=== PATIENT | female | born 1985 | race Caucasian/White ===

== ENCOUNTER 2016-10-28 13:58 | Emergency (ER) | payer OTHER ==
[2016-10-28 13:58] VITALS: BMI 21.0
[2016-10-28 14:06] VITALS: TEMP 98.1
[2016-10-28] MEDS ORDERED: Sodium Chloride 0.9% 1,000 ML ONE (14:15)
[2016-10-28] MEDS: Sodium Chloride 0.9% 1,000 ML IV ONE (14:25)
[2016-10-28 14:36] LABS: BASO # 0.1 K/uL (0.0-0.2); BASO % 0.6 % (0.0-2.0); EOS # 0.1 K/uL (0.0-0.7); EOS % 1.6 % (0.0-4.0); HEMATOCRIT 41.9 % (34.0-47.0); LYMPH # 2.1 K/uL (1.0-4.3); LYMPH % 22.9 % (20.0-40.0); MEAN CELL VOLUME 93.3 fL (81.0-99.0); MEAN CORPUSCULAR HEMOGLOBIN 31.6 pg (27.0-31.0); MEAN CORPUSCULAR HGB CONC 33.8 g/dL (33.0-37.0); MEAN PLATELET VOLUME 7.8 fL (7.2-11.7); MONO # 0.5 K/uL (0.0-0.8); MONO % 5.9 % (0.0-10.0); NRBC % 0.1 % (0.0-2.0); RED CELL DISTRIBUTION WIDTH 13.5 % (11.5-14.5)
[2016-10-28 14:53] LABS: CHLORIDE 100 mmol/L (98-107); POTASSIUM 3.8 mmol/L (3.6-5.2); SODIUM 139 mmol/L (132-148)
[2016-10-28 14:55] LABS: BILIRUBIN,TOTAL 0.9 mg/dL (0.2-1.3); GFR AFRICAN-AMERICAN > 60
[2016-10-28 14:56] LABS: ALB/GLOB RATIO 2.2 (1.0-2.1); ALKALINE PHOSPHATASE 61 U/L (38-126); ALT/SGPT 21 U/L (9-52); AST/SGOT 33 U/L (14-36); BLOOD UREA NITROGEN 12 mg/dL (7-17); CALCIUM 9.2 mg/dl (8.6-10.4); CARBON DIOXIDE 25 mmol/L (22-30); GLUCOSE,RANDOM 89 mg/dL (65-105); TOTAL PROTEIN 7.6 g/dL (6.3-8.3)
[2016-10-28 15:01] LABS: URINE BACTERIA OCC (<OCC); URINE BILIRUBIN NEGATIVE (NEGATIVE); URINE BLOOD 3+ (NEGATIVE); URINE COLOR Yellow (YELLOW); URINE GLUCOSE (UA) NORMAL (Normal); URINE KETONE NEGATIVE (NEGATIVE); URINE LEUKOCYTE ESTERASE TRACE Leu/uL (Negative); URINE PROTEIN NEGATIVE (NEGATIVE); URINE UROBILINOGEN NORMAL mg/dL (0.2-1.0)
[2016-10-28 15:02] LABS: RBC URINE 5 /hpf (0-3)
[2016-10-28 15:03] LABS: WBC URINE 5 /hpf (0-5)
--- NOTE | 2016-10-28 15:21 | US ---
HISTORY: vaginal bleeding COMPARISON: None available. TECHNIQUE: Transabdominal and transvaginal pelvic ultrasound was performed. FINDINGS: UTERUS: Measures 8.4 x 3.9 x 4.7 cm. Anteverted, normal in size and appearance. No fibroid or other mass lesion seen. ENDOMETRIUM: Measures 7 mm in diameter. Unremarkable. CERVIX: No cervical abnormality identified. RIGHT OVARY: Measures 2.6 x 1.8 x 2.4 cm. No solid mass. Normal flow. LEFT OVARY: Measures 2.3 x 1.6 x 2.5 cm. No solid mass. Normal flow. FREE FLUID: No significant free fluid noted. OTHER FINDINGS: None. IMPRESSION: Normal pelvic ultrasound.
[2016-10-28 16:16] VITALS: BP 105/66; PULSE 87; RESP 18; O2SAT 99
--- NOTE | 2016-10-28 16:28 | C.PDOC ---
History Of Present Illness 31-year-old female, (, LMP 09/22), PMHx includes salpingectomy and 2 ectopic pregnancies, presents to the emergency department with complaints of vaginal spotting. Patient states she took a test on 10/28 which was positive. Denies nausea/vomiting, dysuria, vaginal discharge, or any other associated symptoms. Chief Complaint (Nursing): Female Genitourinary Past Medical History Vital Signs: Last Vital Signs Temp 98.1 F 10/28/16 14:04 Pulse 87 10/28/16 16:15 Resp 18 10/28/16 16:15 BP 105/66 10/28/16 16:15 Pulse Ox 99 10/28/16 16:29 - Medical History PMH: Anxiety - [facility] Procedures RESECTION OF ECTOPIC POC, PERC ENDO APPROACH (03/19/15) RESECTION OF LEFT FALLOPIAN TUBE, PERC ENDO APPROACH (03/19/15) Family History: States: Unknown Family Hx - Social History Hx Tobacco Use: No Hx Alcohol Use: Yes Hx Substance Use: No - Immunization History Hx Tetanus Toxoid Vaccination: No Hx Influenza Vaccination: No Hx Pneumococcal Vaccination: No Review Of Systems Except As Marked, All Systems Reviewed And Found Negative. Cardiovascular: Negative for: Chest Pain Respiratory: Negative for: Cough, Shortness of Breath Gastrointestinal: Negative for: Nausea, Vomiting Genitourinary: Positive for: Vaginal Bleeding. Negative for: Dysuria, Frequency , Vaginal Discharge Musculoskeletal: Negative for: Back Pain Skin: Negative for: Rash Neurological: Negative for: Weakness, Numbness Physical Exam - Physical Exam Appears: Non-toxic, No Acute Distress Skin: Warm, Dry Head: Atraumatic, Normacephalic Eye(s): bilateral: Normal Inspection, PERRL, EOMI Nose: Normal Oral Mucosa: Moist Neck: Normal ROM Cardiovascular: Rhythm Regular Respiratory: Normal Breath Sounds, No Accessory Muscle Use Extremity: Normal ROM Neurological/Psych: Oriented x3 ED Course And Treatment - Laboratory Results Result Diagrams: 10/28/16 14:32 10/28/16 14:32 O2 Sat by Pulse Oximetry: 99 Medical Decision Making Medical Decision Making: Of note, patient is A positive as per prior type and screen. Disposition - Disposition Referrals: [facility] Ariel Regregor, [Non-Staff] - Disposition: HOME/ ROUTINE Disposition Time: 15:30 Condition: GOOD Additional Instructions: Thank you for letting us take care of you today. Your provider was Dr. Bae. The emergency medical care you received today was directed at your acute symptoms. If you were prescribed any medication, please fill it and take as directed. It may take several days for your symptoms to resolve. Return to the Emergency Department if your symptoms worsen, do not improve, or if you have any other problems. Please contact your doctor or call one of the physicians/clinics you have been referred to that are listed on the Patient Visit Information form that is included in your discharge packet. Bring any paperwork you were given at discharge with you along with any medications you are taking to your follow up visit. Our treatment cannot replace ongoing medical care by a primary care provider (PCP) outside of the emergency department. Thank you for allowing the [facility] team to be part of your care today. Follow up in the emergency room in 2 days for a repeat blood test and possibly another ultrasound. Instructions: (ED) - Clinical Impression Clinical Impression: Vaginal bleeding during , antepartum - Scribe Statement The provider has reviewed the documentation as recorded by the Shine Locke All medical record entries made by the Shine were at my direction and personally dictated by me. I have reviewed the chart and agree that the record accurately reflects my personal performance of the history, physical exam, medical decision making, and the department course for this patient. I have also personally directed, reviewed, and agree with the discharge instructions and disposition.
== END 2016-10-28 16:16 | disposition home or self-care (01) ==
LOC: C.ER 13:58
DX: O46.90 Antepartum hemorrhage, unspecified, unspecified trimester (principal); Z3A.00 Weeks of gestation of pregnancy not specified
CPT/HCPCS: 76830; 76856; 80053; 81001; 83690; 84702; 85025; 96360; 99284; J7040

== ENCOUNTER 2016-10-30 09:46 | Emergency (ER) | payer OTHER ==
[2016-10-30 09:46] VITALS: BMI 21.0
--- NOTE | 2016-10-30 11:12 | C.PDOC ---
History Of Present Illness 31 y/o female presents to the ED for repeat beta-HCG, patient seen here 2 days ago. Pt reports vaginal bleeding the past 2 days. Denies abdominal cramping , nausea, vomiting, fever or any other complaints. Time Seen by Provider: 10/30/16 10:06 Chief Complaint (Nursing): Medical Clearance History Per: Patient History/Exam Limitations: no limitations Onset/Duration Of Symptoms: Days Current Symptoms Are (Timing): Still Present Severity: Mild Reports Recently: Seen In ED Recent travel outside of the [place]: No Past Medical History Reviewed: Historical Data, Nursing Documentation, Vital Signs Vital Signs: Last Vital Signs Temp 98.1 F 10/30/16 11:29 Pulse 71 10/30/16 11:29 Resp 19 10/30/16 11:29 BP 114/79 10/30/16 11:29 Pulse Ox 99 10/30/16 11:29 - Medical History PMH: Anxiety - [facility] Procedures RESECTION OF ECTOPIC POC, PERC ENDO APPROACH (03/19/15) RESECTION OF LEFT FALLOPIAN TUBE, PERC ENDO APPROACH (03/19/15) Family History: States: Unknown Family Hx - Social History Hx Tobacco Use: No Hx Alcohol Use: Yes Hx Substance Use: No - Immunization History Hx Tetanus Toxoid Vaccination: No Hx Influenza Vaccination: No Hx Pneumococcal Vaccination: No Review Of Systems Except As Marked, All Systems Reviewed And Found Negative. Constitutional: Negative for: Fever, Chills Gastrointestinal: Negative for: Nausea, Vomiting, Abdominal Pain Genitourinary: Positive for: Vaginal Bleeding Physical Exam - Physical Exam Appears: Non-toxic, No Acute Distress Skin: Warm, Dry, No Rash Head: Atraumatic, Normacephalic Cardiovascular: Rhythm Regular, No Murmur Respiratory: Normal Breath Sounds, No Rales, No Rhonchi, No Wheezing Gastrointestinal/Abdominal: Normal Exam, Soft, No Tenderness Extremity: Bilateral: Atraumatic Neurological/Psych: Oriented x3, Normal Speech ED Course And Treatment O2 Sat by Pulse Oximetry: 96 (room air) Pulse Ox Interpretation: Normal Disposition - Disposition Referrals: Elise Stringer, [Non-Staff] - Disposition: HOME/ ROUTINE Disposition Time: 10:50 Condition: GOOD Additional Instructions: Thank you for letting us take care of you today. Your provider was Dr. Bae. The emergency medical care you received today was directed at your acute symptoms. If you were prescribed any medication, please fill it and take as directed. It may take several days for your symptoms to resolve. Return to the Emergency Department if your symptoms worsen, do not improve, or if you have any other problems. Please contact your doctor or call one of the physicians/clinics you have been referred to that are listed on the Patient Visit Information form that is included in your discharge packet. Bring any paperwork you were given at discharge with you along with any medications you are taking to your follow up visit. Our treatment cannot replace ongoing medical care by a primary care provider (PCP) outside of the emergency department. Thank you for allowing the [facility] team to be part of your care today. The hormone level today was 10 (down from 24, two days ago) Follow up with your [facility] doctor in 3-4 days for re-evaluation. - Clinical Impression Clinical Impression: Vaginal bleeding - Scribe Statement The provider has reviewed the documentation as recorded by the Shine Sandra Provider Attestation: All medical record entries made by the Shine were at my direction and personally dictated by me. I have reviewed the chart and agree that the record accurately reflects my personal performance of the history, physical exam, medical decision making, and the department course for this patient. I have also personally directed, reviewed, and agree with the discharge instructions and disposition.
[2016-10-30 11:29] VITALS: BP 114/79; PULSE 71; RESP 19; TEMP 98.1
[2016-10-30 17:42] VITALS: O2SAT 96
== END 2016-10-30 11:28 | disposition home or self-care (01) ==
LOC: C.ER 09:46
DX: N93.9 Abnormal uterine and vaginal bleeding, unspecified (principal)

== ENCOUNTER 2018-03-08 16:05 | Emergency (ER) | payer MEDICAID, OTHER ==
[2018-03-08 16:05] VITALS: BMI 22.8
[2018-03-08] MEDS ORDERED: Oxycodone/Acetaminophen 5/325 mg Tab PO STA (16:32)
[2018-03-08] MEDS ORDERED: Bacitracin 500 Units/gm Oint Foilpak UD TOP ONE (16:32)
[2018-03-08] MEDS ORDERED: Silver Sulfadiazine 1% Cream (20 gm) TOP STA (16:36)
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
[2018-03-08] MEDS ORDERED: Silver Sulfadiazine 1% Cream (20 gm) ONE (16:49)
[2018-03-08] MEDS ORDERED: Bacitracin 500 Units/gm Oint Foilpak UD ONE (16:49)
[2018-03-08] MEDS ORDERED: Oxycodone/Acetaminophen 5/325 mg Tab ONE (16:49)
[2018-03-08 17:39] VITALS: BP 113/78; PULSE 68; RESP 18; TEMP 98.7; O2SAT 98
== END 2018-03-08 17:53 | disposition home or self-care (01) ==
LOC: C.ER 16:05
DX: T20.10XA Burn of first degree of head, face, and neck, unspecified site, initial encounter (principal); X08.8XXA Exposure to other specified smoke, fire and flames, initial encounter